=== PATIENT | male | born 1985 | race Caucasian/White ===

== ENCOUNTER 2019-05-07 | Inpatient (IN) | payer OTHER ==
[~2019-05-07] VITALS: Ht 182.9 cm; Wt 108.4 kg
--- NOTE | ~2019-05-07 | PROC ---
[address] [address] PROCEDURE REPORT Name: GINO HORTON Room: [address] IN .R.#: [id number] Admission: 05/07/19 Attend Phys: Jeanna Borja MD Discharge: 05/08/19 Date of : 87 Report #: [id number] THIS REPORT FOR: //name// For GI report, please see the Provation report in Perceptive 7 content. By: 0654Medical Records Staff DAVID /RAVI
--- NOTE | ~2019-05-07 | CON ---
[address] [address] CONSULTATION Name: CLIFFORDGINO Nidia Room: [address] IN .R.#: [id number] Admission: 05/07/19 Attend Phys: Jeanna Borja MD Discharge: Date of : 87 Report #: [id number] THIS REPORT FOR: //name// CC: Ubaldo Quinn DO Jeanna Borja DICTATED BY: Stephanie Aldrich [facility] DATE OF SERVICE: 05/07/2019 Please note at the time of this dictation, the patient was seen and physically examined by myself. HISTORY OF PRESENT ILLNESS: This is a 33-year-old male who has been having persistent abdominal pain that started about a week ago. It has persistently gotten worse to the point that he did have some nausea and vomiting that was negative for any bright red blood or any coffee ground emesis. He is complaining of epigastric pain as well as right-sided pain as well around to the right of the umbilicus. He states he has never experienced anything like this before except couple of years ago, he did have some hematemesis that was bright red blood when he was down at the [facility]. He went to the Emergency Room at that time and they gave him a bunch of antacids and his symptoms went away. He did not have any upper endoscopy procedures done at that time. The patient states his bowels typically move on a daily basis, although he has had a little bit of constipation one, he has not been eating and drinking as much, but he did have a bowel movement, which was negative for any bright red blood or any black tarry stools prior to arrival; however, it was decreased in the amount that he normally goes, he states. ALLERGIES: No known drug allergies. MEDICATIONS: From home; he does take Aleve two tablets a couple of times a week, usually in the morning for just general aches and pains and then phentermine. PAST MEDICAL HISTORY: The patient states he has been having some bilateral hand pain. He did see senior security analyst. All of his workup was negative at that time. PAST SURGICAL HISTORY: None. FAMILY HISTORY: Significant for GI cancer, stomach cancer in grandparents, female cancers, maternal aunt breast and grandmother uterine as well as another family member with psoriasis for autoimmune disease. SOCIAL HISTORY: He is . Alcohol on occasion with an occasional cigar, [place] [address] CONSULTATION Name: GINO HORTON Room: [address] IN [facility]#: [id number] Admission: 05/07/19 Attend Phys: Jeanna Borja MD Discharge: Date of : 87 Report #: [id number] but denies any illegal drug use. REVIEW OF SYSTEMS: Twelve-point review of systems is essentially negative except what is mentioned in the HPI. PHYSICAL EXAMINATION: VITAL SIGNS: Temperature 36.2, pulse 63, respirations 16, blood pressure 107/59. HEART: Regular rate and rhythm. LUNGS: Clear. ABDOMEN: Soft, positive bowel sounds in all 4 quadrants with tenderness noted in the epigastric and also in the right middle to lower quadrant area. LABORATORY DATA: Hemoglobin is 16.9, white count is 14.6, platelets 349. GFR 78. LFTs are completely normal. Lipase is normal at 143. CT of the abdomen and pelvis shows an intact gallbladder with nondilated bile duct. Pancreas was normal. It did show some compression of the uppermost ascending hepatic flexure and proximal transverse colon with some questionable wall thickening cannot be completely excluded, otherwise normal. IMPRESSION: 1. Right-sided abdominal pain. 2. Epigastric pain. 3. Leukocytosis. 4. Nonsteroidal anti-inflammatory drug use regularly. 5. Family history of breast, stomach, uterine cancer as well as psoriasis. 6. Personal history of ruling out rheumatoid arthritis on him. PLAN: 1. EGD and colonoscopy tomorrow with Dr. Iglesias. 2. ESR, CRP. 3. Further recommendations to be made once the procedure has been performed. Thank you for allowing us to participate in this patient's care. Please do not hesitate to call with any questions in regard to this consult. By: [id number] Iglesias MD /tia
[2019-05-07 00:05] VITALS: BP 120/72
[2019-05-07] MEDS ORDERED: LOMAIRA8 MG PO (00:09)
[2019-05-07 00:45] LABS: ABSOLUTE BASOPHILS 0.1 thou/uL (0.0-0.2); ABSOLUTE EOSINOPHILS 0.4 thou/uL (0.0-0.7); ABSOLUTE LYMPHOCYTES 5.4 thou/uL (0.8-5.3); ABSOLUTE NEUTROPHILS 7.8 thou/uL (1.6-8.1); BASOPHILS 0.6 %; EOSINOPHILS 2.8 %; HEMATOCRIT 48.6 % (42.0-52.0); HEMOGLOBIN 16.9 gm/dL (14.0-18.0); LYMPHOCYTES 36.9 %; MCH 31.1 pg (26.0-34.0); MCHC 34.8 g/dL (28.0-37.0); MCV 89.4 fL (80.0-100.0); MONOCYTES 6.6 %; MPV 8.3 fl. (7.2-11.1); NUCLEATED RBCS 0 /100WBC; PLATELET COUNT* 349 thou/uL (150-400); POLYS 53.1 %; RBC 5.43 mil/uL (4.50-6.00); RDW-CV 12.5 % (10.5-14.5); WBC 14.6 thou/uL (4.0-11.0)
[2019-05-07 00:47] LABS: CALCIUM 9.2 mg/dL (8.5-10.1); CREATININE 1.1 mg/dL (0.6-1.3); POTASSIUM 3.6 mmol/L (3.5-5.1)
[2019-05-07 00:47] LABS: URINE BILIRUBIN NEGATIVE (Negative); URINE BLOOD 1+ (Negative); URINE CLARITY CLEAR; URINE COLOR YELLOW; URINE GLUCOSE-RANDOM NEGATIVE (Negative); URINE KETONES NEGATIVE (Negative); URINE LEUKOCYTES-REFLEX NEGATIVE (Negative); URINE NITRITE-REFLEX NEGATIVE (Negative); URINE PROTEIN 1+ (Negative); URINE SPECIFIC GRAVITY >= 1.030 (1.005-1.030)
[2019-05-07 00:52] LABS: ALBUMIN 4.1 g/dL (3.4-5.0); TOTAL BILIRUBIN 0.4 mg/dL (<0.1-1.0); TOTAL PROTEIN 7.7 g/dL (6.4-8.2)
[2019-05-07 00:53] LABS: AMP/METHAMP Negative (Negative); BARBITURATES Negative (Negative); BENZODIAZEPINES Negative (Negative); COCAINE Negative (Negative); METHADONE Negative (Negative); OPIATES Negative (Negative); PCP Negative (Negative); THC Negative (Negative)
[2019-05-07 01:07] LABS: SQUAMOUS 0-3 Few /LPF (0-3)
[2019-05-07 01:08] LABS: HYALINE CASTS 0-3 Few /LPF (None Seen); URINE WBC-REFLEX 0-5 Rare /HPF (0-5)
[2019-05-07 01:09] LABS: CALCIUM OXALATE 4-10 Moderate /LPF (None Seen); URINE RBC 0-2 Rare /HPF (0-2)
[2019-05-07] MEDS ORDERED: NORCO 5-325 TA1 EAC1 PO (02:22)
[2019-05-07] MEDS ORDERED: ZOFRAN ODT4 MG PO (02:22)
[2019-05-07] MEDS ORDERED: FLAGYL500 M1 PO (02:22)
[2019-05-07 03:37] VITALS: BP 107/59
--- NOTE | 2019-05-07 05:19 | NUR ---
PT ADMITTED TO RM 308 FROM ER @0330. ORIENTED TO ROOM AND CALL LIGHT. ALERT AND ORIENTED. VSS ON RA. ADMISSION HX AND ASSESSMENT DONE. AT BEDSIDE THIS SHIFT. MORPHINE ORDERED FOR PAIN PER DR OSEGUERA. NPO. GI CONSULT TO BE CALLED THIS AM. RAC IV WITH NS @100. IV FLAGYL INFUSED ORDERED. CALL IGHT WTHIN REACH. HOURLY ROUNDINGS MADE. WILL CONTINUE TO MONITOR.
--- NOTE | 2019-05-07 15:09 | NUR ---
SW met with pt to complete initial assessment, introduce self, and SW role. Pt alert, oriented, pleasant. Pt lives at home with and is normally independent. Pt does not anticipate any dc needs. SW to remain available to assist with safe dc planning if needs arise.
[2019-05-07 16:32] VITALS: BP 125/77
--- NOTE | 2019-05-07 17:31 | NUR ---
ASSESSMENT COMPLETE. PT ALERT AND ORIENTED X4. PT DENIES NEED FOR PAIN MEDICATION. PT REPORTS DISCOMFORT BUT NOT NEEDING PAIN MEDICATION AT THIS TIME. PT HAS IV FLUIDS INFUSING. CLEAR LIQUID DIET AT THIS TIME. EGD/ COLON PLANNED FOR TOMORROW. IV CIPRO/FLAGYL GIVEN ORDERED. PT IS UP AD AMBER. PT HAS NO OTHER CONCERNS AT THIS TIME. SEE ASSESSMENT AND VITALS FOR OTHER DETAILS. CALL LIGHT WITHIN REACH, WILL CONTINUE PLAN OF CARE
[2019-05-07 20:00] VITALS: BP 131/87
[2019-05-08 05:33] VITALS: BP 131/87
--- NOTE | 2019-05-08 06:50 | NUR ---
PT ALERT AND ORIENTED. VSS ON RA. ABX INFUSED ORDERED. PT DESCRIBES PAIN DULL, RATES IT AT 3 ON ASSESSMENT. DIDN'T WANT PAIN MEDS. BOWEL PREP. PT SAYS BM IS CLEAR. EGD CONSENT SIGNED. EGD/COLON THIS AM. NPO. MOM AT BEDSIDE THIS SHIFT. WILL CONTINUE TO MONITOR.
[2019-05-08 07:19] VITALS: BP 131/87
[2019-05-08] MEDS ORDERED: CIPRO500 M1 PO (14:13)
[2019-05-08] MEDS ORDERED: FLAGYL500 M1 PO (14:15)
[2019-05-08 14:38] VITALS: BP 131/87
--- NOTE | 2019-05-08 15:36 | NUR ---
ASSESSMENT COMPLETE. PT ALERT AND ORIENTED X4. EGD/ COLON TODAY WITH DR FABIAN. PT DENIES NEED FOR PAIN MEDICATION. IV FLUIDS INFUSING. CIPRO/FLAGYL GIVEN SCHEDULED. SEE ASSESSMENT AND VITALS FOR OTHER DETAILS. WILL CONTINUE PLAN OF CARE
[2019-05-08] MEDS ORDERED: PROTONIX40 M1 PO (16:07)
[2019-05-08 16:09] VITALS: BP 131/87
[2019-05-08 17:06] VITALS: BP 131/87
--- NOTE | 2019-05-10 19:06 | PATH ---
[address] [address] PATHOLOGY RPT PROCEDURE Name: CLIFFORDRD Room: [address] IN M.R.#: [id number] Admission: 05/07/19 Date of : 87 Discharge: 05/08/19 Report #: [id number] Path Case #: [id number] [facility] Accession Number: [id number] . 01 Material submitted: . PART A: duodenum - BIOPSY,DUODENUM PART B: colon - BIOPSY,RANDOM COLON . 01 Clinician provided ICD-10: A04.9:R65.10 . 01 Clinical history: . Bacterial interstitial infection, unspecified Sirs of non-infections origin without acute organ failure . 02 Diagnosis: A. Small bowel, duodenum, biopsy: - Duodenal mucosa with abundant acute and chronic inflammation and focal ulceration. - Normal villous architecture present in areas away from ulceration. . B. Colon, random biopsies: - Colonic mucosa with no significant histopathologic diagnosis. (SKM:pit; 05/10/2019) QTP 05/10/2019 1051 Local . 02 Electronically signed: . aJmey Bryant MD, Pathologist NPI- [id number] . 01 Gross description: . A. The specimen is received in formalin, labeled "Rd Horton, duodenal biopsies for duodenal erosions", are four irregular fragments of moore soft tissue measuring 0.4 x 0.3 x 0.1 cm in aggregate. Entirely submitted in A1. . B. The specimen is received in formalin, labeled "Rd Horton, random colon biopsies", are few irregular fragments of moore soft tissue measuring 0.5 x 0.3 x 0.1 cm in aggregate. Entirely submitted in B1. ([facility]; 05/09/2019) [facility] 05/09/2019 1830 Local . 02 Pathologist provided ICD-10: K29.80 . 02 CPT . 503895, [id number] Specimen Comment: A courtesy copy of this report has been sent to [phone] [address] PATHOLOGY RPT PROCEDURE Name: RD HORTON Room: [address] IN M.R.#: [id number] Admission: 05/07/19 Date of : 87 Discharge: 05/08/19 Report #: [id number] Path Case #: [id number] Specimen Comment: [id number] Specimen Comment: Report sent to / DR GARCÍA Performed at: [facility] [address], [place], [place] [id number] MD Keith Schrader MD Phone: [phone] Performed at: [address] [facility] [address], [place], [place] [id number] MD Wiley Osborn MD Phone: [phone]
== END 2019-05-08 17:13 | disposition home or self-care (01) | DRG 372 ==
LOC: M.ERS → M.3W 02:39 → M.TBA-ER 02:39 → M.3W 03:19
PROVIDERS: Personal Emergency Response Attendant; ADMIT Internal Medicine
PROC: 0DB98ZX Excision of Duodenum, Via Natural or Artificial Opening Endoscopic, Diagnostic (ICD-10-PCS; principal; 2019-05-08)
PROC: 0DBE8ZX Excision of Large Intestine, Via Natural or Artificial Opening Endoscopic, Diagnostic (ICD-10-PCS; 2019-05-08)
DX: A04.9 Bacterial intestinal infection, unspecified (principal); R65.10 Systemic inflammatory response syndrome (SIRS) of non-infectious origin without acute organ dysfunction; K21.0 Gastro-esophageal reflux disease with esophagitis; D72.829 Elevated white blood cell count, unspecified; E86.0 Dehydration; K44.9 Diaphragmatic hernia without obstruction or gangrene; K26.9 Duodenal ulcer, unspecified as acute or chronic, without hemorrhage or perforation; K64.8 Other hemorrhoids; Z80.0 Family history of malignant neoplasm of digestive organs; Z79.1 Long term (current) use of non-steroidal anti-inflammatories (NSAID); Z87.891 Personal history of nicotine dependence